=== PATIENT | female | born 1975 | race Caucasian/White ===

== ENCOUNTER → 2020-10-01 01:55 | Outpatient (CLI) | payer OTHER, SELFPAY ==
[2020-10-01 19:23] LABS: SARS-CoV-2 RNA PCR Negative
== END ==
PROVIDERS: PCP Nurse Practitioner; Visit Provider Urology
DX: Z01.812 Encounter for preprocedural laboratory examination (principal); Z20.822 Contact with and (suspected) exposure to COVID-19
CPT/HCPCS: C9803; U0003; U0005

== ENCOUNTER 2020-10-04 02:24 | Day surgery (SDC) | payer OTHER, SELFPAY ==
--- NOTE | 2020-09-22 09:55 | PM.IMHP ---
H&P: HPI History of Present Illness Date/Time: 09/22/20 09:55 45 yo with BRENT. POP is minimally symptomatic Chief Complaint: BRENT Review of Systems Review of Systems: All systems reviewed & are unremarkable except as noted in HPI and below [facility] Social History Social History (Updated 09/22/20 @ 09:57 by Severiano Florez MD) Smoking status: Never smoker Alcohol intake: unknown Exam Const: General: cooperative Nutritional Appearance: obese Orientation/consciousness: oriented to person HENMT: Head: normal to inspection Eyes: General: appearance normal, both eyes and all related structures Neck: Neck: normal visual inspection Resp: Effort & Inspection: normal respiratory effort and able to speak in complete sentences GI: Inspection: normal to inspection Skin: General skin exam: normal color Assessment and Plan Assessment and plan (1) BRENT (stress urinary incontinence, female): Code(s): N39.3 - Stress incontinence (female) (male) Status: Acute Assessment and Plan: urethral sling
[2020-09-25 12:00] VITALS: BMI 41.1
--- NOTE | 2020-10-03 09:22 | WPDANESEPPF ---
Anes - Initial Pre Proc Eval Procedure: Operation Date: 10/04/20 09:00 Proposed Procedures p Urethral Sling - Severiano Florez MD Date/Time: 10/03/20 09:22 Surgeon: Severiano Florez MD Pre Op Diagnosis: stress incontinence Patient Data Age: 45 Gender: F Height: 1.68 m Weight: 115.7 kg Allergies Allergy/AdvReac Type Severity Reaction Status Date / Time No Known Allergies Allergy Verified 10/04/20 07:42 Home Medications Medication Instructions Recorded Confirmed Type ergocalciferol (vitamin D2) 1,250 mcg PO WEEKLY 09/25/20 10/04/20 History multivitamin 1 tablet PO DAILY 09/25/20 10/04/20 History omega-3 fatty acids [[place] 3] 1,000 mg PO DAILY 09/25/20 10/04/20 History Patient hx anesthesia problems: none Family hx anesthesia problems: none [facility] Past Medical History Medical History (Updated 10/03/20 @ 09:25 by Jonny Lenz DO) Anxiety Bipolar disorder Depression Hyperlipidemia PCOS (polycystic ovarian syndrome) 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 meds Thoracic outlet syndrome Surgical History Surgical History (Updated 10/03/20 @ 09:25 by Jonny Lenz DO) History of cholecystectomy Social History Social History (Updated 09/22/20 @ 09:57 by Severiano Florez MD) Smoking status: Never smoker Alcohol intake: never Substance use: never Substance use type: does not use Living arrangements: with family Spiritual care concerns: No Anes - Eval Final PreProcedure Day of Procedure 10/03/20 09:22 Patient weight: morbidly obese Heart: regular rate and rhythm Lungs: clear to auscultation and normal air movement Airway: Mallampati scale class II Neurological: alert and oriented Last oral intake: >/= 8 hours ASA classification: III Emergent: no Anesthetic plan: proceed Anesthesia type and monitoring: general LMA and standard monitoring Informed Consent: The patient's anesthetic plan and its attendant risks and benefits were discussed with the patient/family/POA. Questions were solicited and answers provided to the satisfaction of the patient/family/POA.
--- NOTE | 2020-10-04 07:26 | WPDHPUPDATE1 ---
History and Physical Update Update Date/Time: 10/04/20 07:26 History and Physical has been reviewed, including an updated exam of the patient. There are NO changes in the patient's condition. Risks, benefits, and alternatives have been discussed and questions answered. Patient agrees to proceed with procedure.
[2020-10-04 07:37] VITALS: BMI 41.0
[2020-10-04 07:53] VITALS: BP 136/80; PULSE 82; RESP 18; TEMP 36.6; O2SAT 99
[2020-10-04] MEDS: LACTATED RINGERS 1,000 ML 30 ML IV CONT (07:55)
[2020-10-04] MEDS: ceFAZolin 2 GM/D5W 50 ML 2 GM/50 ML BAG IVPB (09:31)
[2020-10-04] MEDS: LIDO 1%/EPINEPHRINE 1:100,000 50 ML VIAL 20 ML INFILTRATE (09:41)
[2020-10-04 10:01] VITALS: BP 99/56; PULSE 75; RESP 16; O2SAT 100
--- NOTE | 2020-10-04 10:05 | PM.PROC ---
Procedure Note - Detailed Date of procedure: 10/04/20 Pre-op diagnosis: stress incontinence Stress urinary incontinence Post-op diagnosis: same Procedure performed: Transobturator Mid-urethral sling Cystoscopy Description of procedure: Anesthesia: Mac/local This is a patient with confirmed stress urinary incontinence. She desires correction. She understands the risks of bleeding, infection, damage to the urinary tract, lack of cure of stress incontinence, recurrence of stress incontinence, postoperative voiding dysfunction including incontinence and retention, need for ancillary procedures to loosen remove the sling, postoperative voiding dysfunction including retention and overactive bladder, hip and leg pain, dyspareunia, mesh related complications including exposure and extrusion. She agrees to proceed. She understands it will not help overactive bladder symptoms if present. She was correctly identified and informed consent obtained. She is brought to the operating room. She was given appropriate anesthesia. She was placed in the dorsal lithotomy position. All pressure points were padded. She was given appropriate perioperative antibiotics and a time-out performed. A Morales catheter is placed. I marked out the thigh incisions anesthetize the skin and made those incisions. I anesthetized the anterior vaginal wall over the mid urethra. I made a 1 cm incision. I dissected out laterally taking great care not to injure the urethra or the vaginal wall. Passed the helical trocars 1st on the left and then on the right from the thigh incision towards the vaginal incision. Sling was connected to the trocars and brought out through the thigh incision. I tensioned the sling appropriately. I cut and removed the plastic sheaths. I closed the incision with 2 0 Vicryl. I then performed cystoscopy. There was no surgical artifact or abnormalities inside the bladder. The urethra was normal without surgical artifact. I cut the excess sling material. I closed the incisions with glue. She was awakened and transferred to the PACU in stable condition. Implants: Mid urethral sling Surgeon: Severiano Florez MD Drains: No Packing: No Pathology: none sent Complications: No immediate complications Condition: stable Disposition: PACU
[2020-10-04 10:30] VITALS: BP 113/74; PULSE 69
== END 2020-10-04 10:50 | disposition home or self-care (01) ==
PROVIDERS: PCP Nurse Practitioner; Visit Provider Urology
PROC: (CPT 57288; principal; 2020-10-04 09:00)
DX: N39.3 Stress incontinence (female) (male) (principal); F31.9 Bipolar disorder, unspecified; F41.9 Anxiety disorder, unspecified; E78.5 Hyperlipidemia, unspecified; E28.2 Polycystic ovarian syndrome; G54.0 Brachial plexus disorders; E66.01 Morbid (severe) obesity due to excess calories; Z68.41 Body mass index [BMI] 40.0-44.9, adult
CPT/HCPCS: 57288; A9270; C1771; C9803; J0690; J2250; J2405; J2704; J3010; J7030; J7120; U0003; U0005